=== PATIENT | female | born 1945 | race Caucasian/White ===

== ENCOUNTER 2024-09-12 11:32 | Inpatient (IN) | payer MEDICARE, OTHER ==
[~2024-09-12] VITALS: Ht 149.9 cm; Wt 77.1 kg
[2024-09-12] MEDS ORDERED: MEMA10TA56 PO (12:57)
[2024-09-12] MEDS ORDERED: BREX2TAB PO (12:57)
[2024-09-12] MEDS ORDERED: DEXT1CAP3 PO (12:57)
[2024-09-12] MEDS ORDERED: SERT50TA PO (12:57)
[2024-09-12] MEDS ORDERED: QUET50TA15 PO (12:57)
[2024-09-12] MEDS ORDERED: DOCU250C14 PO (12:57)
[2024-09-12] MEDS ORDERED: TRAZ300T2 PO (12:57)
[2024-09-12] MEDS ORDERED: DONE5TAB34 PO (12:57)
[2024-09-12] MEDS ORDERED: MAG HYDROX/AL HYDROX/SIMETH 30 ML LIQUID UDC PO PRN (13:00)
[2024-09-12] MEDS ORDERED: ZOLPIDEM 5 MG TABLET PO PRN (13:00)
[2024-09-12] MEDS ORDERED: MAGNESIUM HYDROXIDE 30 ML LIQUID UDC PO PRN (13:00)
[2024-09-12] MEDS ORDERED: FURO40TA5 PO (15:00)
[2024-09-12] MEDS ORDERED: TERB250T52 PO (15:00)
[2024-09-12 16:27] VITALS: BP 138/76; TEMP 98; O2SAT 100
[2024-09-12] MEDS ORDERED: FUROSEMIDE 40 MG TABLET PO PRN (17:30)
[2024-09-12 19:52] VITALS: BP 149/76; TEMP 98; O2SAT 96
[2024-09-12] MEDS ORDERED: LORAZEPAM 1 MG TABLET PO PRN (20:00)
[2024-09-12] MEDS: ZOLPIDEM 5 MG TABLET PO PRN (20:48)
[2024-09-12] MEDS: ACETAMINOPHEN 325 MG TABLET PO PRN (20:49)
[2024-09-13 08:07] VITALS: BP 177/96; TEMP 97.7; O2SAT 100
[2024-09-13 08:12] LABS: ASPARTATE AMINOTRANSFERASE 17 U/L (15-37); CREATININE 1.0 mg/dL (0.6-1.3); SODIUM SERUM 146 mmol/L (136-145); TOTAL PROTEIN, SERUM 7.2 g/dL (6.4-8.2); UREA NITROGEN, BLOOD 10 mg/dL (7-18)
[2024-09-13 16:00] VITALS: BP 137/79; TEMP 97.8; O2SAT 99
[2024-09-13] MEDS: QUETIAPINE FUMARATE 25 MG TABLET PO SCH ×2 (17:11→22:12)
[2024-09-13 19:54] VITALS: BP 138/99; TEMP 97.8; O2SAT 98
[2024-09-13] MEDS: ATORVASTATIN 10 MG TABLET PO SCH (21:00)
[2024-09-14 08:01] VITALS: BP 119/77; TEMP 98; O2SAT 98
[2024-09-14 16:18] VITALS: BP 124/61; TEMP 98; O2SAT 98
[2024-09-14 19:48] VITALS: BP 126/74; TEMP 97.9; O2SAT 98
[2024-09-15 07:45] LABS: PLATELET COUNT (AUTO) 195 K/uL (179-408); RED BLOOD CELL COUNT(AUTO) 4.14 MIL/uL (3.63-4.92); RED CELL DISTRIBUTION WIDTH 14.3 % (12.3-17.7); WHITE BLOOD COUNT (AUTO) 4.8 K/uL (3.8-11.8)
[2024-09-15 08:22] LABS: ASPARTATE AMINOTRANSFERASE 12 U/L (15-37); CREATININE 0.8 mg/dL (0.6-1.3); SODIUM SERUM 141 mmol/L (136-145); TOTAL PROTEIN, SERUM 6.0 g/dL (6.4-8.2); UREA NITROGEN, BLOOD 18 mg/dL (7-18)
[2024-09-15 08:46] VITALS: BP 108/65; TEMP 97.8; O2SAT 98
[2024-09-15 15:24] VITALS: BP 135/73; TEMP 98; O2SAT 98
[2024-09-15 20:00] VITALS: BP 151/70; TEMP 98.3; O2SAT 0
[2024-09-16 09:00] VITALS: BP 124/87; TEMP 98; O2SAT 96
[2024-09-16 16:13] VITALS: BP 124/47; TEMP 98; O2SAT 98
[2024-09-16 20:00] VITALS: BP 138/82; TEMP 98; O2SAT 97
[2024-09-17 08:50] VITALS: BP 143/86; TEMP 98.3; O2SAT 98
[2024-09-17 16:27] VITALS: BP 117/76; TEMP 98.3; O2SAT 98
[2024-09-17 19:50] VITALS: BP 164/85; TEMP 98.1; O2SAT 99
[2024-09-17] MEDS: LORAZEPAM 0.5 MG TABLET PO PRN (23:41)
[2024-09-18 08:08] VITALS: BP 146/96; TEMP 98.1; O2SAT 99
[2024-09-18 16:17] VITALS: BP 140/68; TEMP 98.1; O2SAT 99
[2024-09-18 19:53] VITALS: BP 120/72; TEMP 98.1; O2SAT 98
[2024-09-19 08:32] VITALS: BP 95/57; TEMP 98; O2SAT 98
[2024-09-19 16:08] VITALS: BP 133/82; TEMP 98; O2SAT 98
[2024-09-19] MEDS: QUETIAPINE FUMARATE 25 MG TABLET PO SCH ×2 (16:46→20:34)
[2024-09-19] MEDS: SERTRALINE HCL 50 MG TABLET PO SCH (16:46)
[2024-09-19] MEDS: risperiDONE-M 0.5 MG TAB.RAPDIS PO SCH (16:47)
[2024-09-19] MEDS: ENSURE ENLIVE (VAN) 240 ML LIQUID PO SCH (16:47)
[2024-09-19 20:03] VITALS: BP 112/78; TEMP 97.6; O2SAT 96
[2024-09-20 08:00] VITALS: BP 134/74; TEMP 97.6; O2SAT 98
[2024-09-20 15:35] VITALS: BP 143/80; TEMP 98.5; O2SAT 99
[2024-09-20 20:00] VITALS: BP 135/70; TEMP 98.2; O2SAT 98
[2024-09-21 05:00] LABS: *BILIRUBIN,URIN NEGATIVE (NEGATIVE); *BLOOD, URINE NEGATIVE (NEGATIVE); *CLARITY,URINE CLEAR (CLEAR); *COLOR,URINE YELLOW (YELLOW); *KETONES,URINE TRACE (NEGATIVE); *PROTEIN,URINE NEGATIVE (NEGATIVE); *UROBILINOGEN,URINE 0.2 E.U./dl (NORMAL); LEUKOCYTE ESTERASE ,URINE 1+ (NEGATIVE); NITRITE, URINE NEGATIVE (NEGATIVE); UGLUCOSE NEGATIVE (NEGATIVE)
[2024-09-21 05:15] LABS: SQUAMOUS EPITHELIAL CELL,UR MODERATE /HPF (NONE SEEN)
[2024-09-21 05:18] LABS: CALCIUM OXALATE CRYSTALS,UR FEW /HPF (NONE SEEN)
[2024-09-21 08:19] VITALS: BP 114/85; TEMP 98.3; O2SAT 99
[2024-09-21 16:07] VITALS: BP 165/91; TEMP 98.1; O2SAT 99
[2024-09-21 20:00] VITALS: BP 137/89; TEMP 98.2; O2SAT 99
[2024-09-22 07:45] VITALS: BP 127/86; TEMP 98; O2SAT 100
[2024-09-22 15:04] VITALS: BP 120/56; TEMP 98; O2SAT 99
[2024-09-22 20:00] VITALS: BP 117/77; TEMP 99; O2SAT 99
[2024-09-22] MEDS: QUETIAPINE FUMARATE 25 MG TABLET PO SCH (20:29)
[2024-09-23 09:39] VITALS: BP 148/57; TEMP 98; O2SAT 98
[2024-09-23 15:36] VITALS: BP 125/71; TEMP 98; O2SAT 98
[2024-09-23 20:00] VITALS: BP 139/75; TEMP 98; O2SAT 99
[2024-09-24 08:14] VITALS: BP 143/77; TEMP 98; O2SAT 99
[2024-09-24 16:37] VITALS: BP 127/61; TEMP 98; O2SAT 99
[2024-09-24 20:00] VITALS: BP 156/80; O2SAT 98
[2024-09-24 22:53] VITALS: BP 143/78
[2024-09-25 08:12] VITALS: BP 109/78; TEMP 98; O2SAT 99
[2024-09-25] MEDS ORDERED: CEPH500C2 PO (11:07)
[2024-09-25] MEDS ORDERED: ATOR10TA PO ×2 (11:07→11:10)
[2024-09-25] MEDS ORDERED: CEPH500T PO (11:10)
== END 2024-09-25 11:30 | disposition home or self-care (01) | DRG 885 ==
LOC: GPS 11:32
PROVIDERS: ADMIT Psychiatry & Neurology Psychosomatic Medicine; ATTEND Internal Medicine
DX: F29 Unspecified psychosis not due to a substance or known physiological condition (principal); N39.0 Urinary tract infection, site not specified; E44.0 Moderate protein-calorie malnutrition; F03.93 Unspecified dementia, unspecified severity, with mood disturbance; F03.92 Unspecified dementia, unspecified severity, with psychotic disturbance; F41.9 Anxiety disorder, unspecified; E66.9 Obesity, unspecified; Z68.34 Body mass index [BMI] 34.0-34.9, adult; E78.5 Hyperlipidemia, unspecified; I10 Essential (primary) hypertension; Z79.899 Other long term (current) drug therapy; E88.09 Other disorders of plasma-protein metabolism, not elsewhere classified
CPT/HCPCS: 36415; 70450; 83735; 84100; 84443; 85025; 87086